=== PATIENT | female | born 1955 | race Caucasian/White ===

== ENCOUNTER 2020-12-05 12:41 | Emergency (ER) | payer MEDICARE ==
[~2020-12-05] VITALS: Ht 157.5 cm; Wt 91.0 kg
[~2020-12-05 12:41] MED LIST: ATOR40TA PO; CIPR500T94 PO; MECL12.582 PO; SCOP1PAT11 TP
[2020-12-05] MEDS ORDERED: IPRATRPIUM/ALBUTEROL 0.5/2.5MG 3 ML NEBU. ONE (12:58)
[2020-12-05] MEDS ORDERED: ALBUTEROL SULFATE 2.5 MG/3 ML NEBU. NEB ONE ×2 (13:00→14:15)
[2020-12-05] MEDS ORDERED: methylPREDNISolone SOD SUCC PF 125 MG/2 ML VIAL. IV ONE (13:00)
[2020-12-05] MEDS ORDERED: IPRATRPIUM/ALBUTEROL 0.5/2.5MG 3 ML NEBU. NEB ONE (13:15)
[2020-12-05 13:27] LABS: BASO % 0 % (0-3); EOS # 0.3 x10^3/uL (0.0-0.7); EOS % 3 % (0-3); HEMATOCRIT 42.3 % (36.0-47.0); HEMOGLOBIN 14.3 g/dL (12.0-15.5); LYMPH # 3.3 x10^3/uL (1.0-4.8); LYMPH % 41 % (24-48); MEAN CORPUSCULAR HEMOGLOBIN 31 pg (25-35); MEAN CORPUSCULAR HGB CONC 34 g/dL (31-37); MEAN CORPUSCULAR VOLUME 91 fL (79-100); MONO # 0.6 x10^3/uL (0.0-1.1); MONO % 8 % (0-9); NEUT # 3.8 x10^3uL (1.8-7.7); NEUT % 48 % (31-73); PLATELET COUNT 267 x10^3/uL (140-400); RED BLOOD COUNT 4.67 x10^6/uL (3.50-5.40); RED CELL DISTRIBUTION WIDTH 13.7 % (11.5-14.5); WHITE BLOOD COUNT 7.9 x10^3/uL (4.0-11.0)
--- NOTE | 2020-12-05 13:29 | RAD ---
XR CHEST 1V History: Reason: shortness of breath / Spl. Instructions: / History: Comparison: July 26, 2020 Findings: Mild linear left basilar atelectasis. No consolidation or pleural effusion. Normal heart size. No pne umothorax. Impression: 1. No acute cardiopulmonary process. Electronically signed by: José Miguel Norris DO (12/05/2020 1:26 PM) [facility] [place]
[2020-12-05 13:34] LABS: CALCIUM 9.1 mg/dL (8.5-10.1); CREATININE 0.8 mg/dL (0.6-1.0); POTASSIUM 3.5 mmol/L (3.5-5.1)
--- NOTE | 2020-12-05 13:35 | PHYS DOC ---
Past History Past Medical History: COPD, High Cholesterol (CRISTIAN PENA APRN) Past Surgical History: No Surgical History (CRISTIAN PENA APRN) Alcohol Use: None Drug Use: None (CRISTIAN PENA APRN) General Adult EDM: Chief Complaint: SHORTNESS OF BREATH HPI: HPI: Patient is a 65-year-old female who presents with shortness of breath. Patient states that she forgot to take her medication to control her COPD. Patient denies chest pain, recent illness or fever. Patient has history of COPD and high cholesterol. (CRISTIAN PENA APRN) Review of Systems: Review of Systems: Constitutional: Denies fever or chills Eyes: Denies change in visual acuity HENT: Denies nasal congestion or sore throat Respiratory: Reports shortness of breath, denies cough Cardiovascular: Denies chest pain or edema GI: Denies abdominal pain, nausea, vomiting, bloody stools or diarrhea : Denies dysuria Musculoskeletal: Denies back pain or joint pain Integument: Denies rash Neurologic: Denies headache, focal weakness or sensory changes Endocrine: Denies polyuria or polydipsia Lymphatic: Denies swollen glands Psychiatric: Denies depression or anxiety (CRISTIAN PENA APRN) Current Medications: Current Meds: Current Medications Medications (Trade) Dose Ordered Sig/Rafa Start Time Stop Time Status Last Admin Dose Admin Albuterol Sulfate (Ventolin) 2.5 mg 1X ONCE 12/05/20 13:00 12/05/20 13:18 DC 12/05/20 13:15 2.5 MG Albuterol/ Ipratropium (Duoneb) 3 ml 1X ONCE 12/05/20 13:15 12/05/20 13:18 DC 12/05/20 13:16 3 ML Methylprednisolone Sodium Succinate (SOLU-Medrol 125MG VIAL) 125 mg 1X ONCE 12/05/20 13:00 12/05/20 13:18 DC 12/05/20 13:15 125 MG (CRISTIAN PENA APRN) Allergies: Allergies: Allergies Coded Allergies Type Severity Reaction Last Updated Verified No Known Allergies Allergy Unknown 12/05/20 No (CRISTIAN PENA APRN) Physical Exam: PE: Constitutional: Well developed, well nourished, no acute distress, non-toxic appearance. [] HENT: Normocephalic, atraumatic, bilateral external ears normal, oropharynx moist, no oral exudates, nose normal. [] Eyes: PERRLA, EOMI, conjunctiva normal, no discharge. [] Neck: Normal range of motion, no tenderness, supple, no stridor. [] Cardiovascular:Heart rate regular rhythm, no murmur [] Lungs & Thorax: Wheezing bilaterally on auscultation Abdomen: Bowel sounds normal, soft, no tenderness, no masses, no pulsatile masses. [] Skin: Warm, dry, no erythema, no rash. [] Back: No tenderness, no CVA tenderness. [] Extremities: No tenderness, no cyanosis, no clubbing, ROM intact, no edema. [] Neurologic: Alert and oriented X 3, normal motor function, normal sensory f unction, no focal deficits noted. [] Psychologic: Affect normal, judgement normal, mood normal. [] (CRISTIAN PENA APRN) Current Patient Data: Vital Signs: Vital Signs Date Time Temp Pulse Resp B/P (MAP) Pulse Ox O2 Delivery O2 Flow Rate FiO2 12/05/20 13:19 96 Room Air 12/05/20 13:01 97.8 77 28 165/83 (110) (CRISTIAN PENA APRN) EKG: EKG: Sinus rhythm. Heart rate 73 bpm. [] (CRISTIAN PENA APRN) Radiology/Procedures: Radiology/Procedures: []XR CHEST 1V History: Reason: shortness of breath / Spl. Instructions: / History: Comparison: July 26, 2020 Findings: Mild linear left basilar atelectasis. No consolidation or pleural effusion. Normal heart size. No pneumothorax. Impression: 1. No acute cardiopulmonary process. Electronically signed by: José Miguel Norris DO (12/05/2020 1:26 PM) [facility] (CRISTIAN PENA APRN) Heart Score: C/O Chest Pain: No Risk Factors: Risk Factors: DM, Current or recent (<one month) smoker, HTN, HLP, family history of CAD, obesity. Risk Scores: Score 0 - 3: 2.5% MACE over next 6 weeks - Discharge Home Score 4 - 6: 20.3% MACE over next 6 weeks - Admit for Clinical Observation Score 7 - 10: 72.7% MACE over next 6 weeks - Early Invasive Strategies (CRISTIAN PENA APRN) Course & Med Decision Making: Course & Med Decision Making Pertinent Labs and Imaging studies reviewed. (See chart for details) [] 65-year-old female who presents with shortness of breath. Patient has a history of COPD and states that she did not take her normal medications last week, because she forgot. Patient does have prescriptions and medications at home. Patient was 96% on room air upon arrival to the emergency room. Patient received 2 DuoNeb treatments and Solu-Medrol. Patient reports symptoms have improved. Wheezing improved on rotation. Chest x-ray was negative for any acute abnormalities. WBCs, 7.9. Afebrile. Troponin is negative. Patient ambulated to the restroom without distress. All other labs unremarkable. Patient most likely is experiencing a COPD exacerbation. Patient is being sent home with Medrol Dosepak and instructed to take her medications she has been prescribed for her COPD. Patient instructed to return to the emergency room with worsening symptoms. Patient is appreciative and okay with discharge plan. (CRISTIAN PENA APRN) Dragon Disclaimer: Dragon Disclaimer: This electronic medical record was generated, in whole or in part, using a voice recognition dictation system. (CRISTIAN PENA APRN) Attending Co-Sign The patient was seen and interviewed as well as examined at the bedside. The chart was reviewed. The case was discussed. Agree with the plan of care. (JAYMIE SAAVEDRA DO) Departure Departure: Impression: Primary Impression: COPD exacerbation Disposition: 01 HOME / SELF CARE / HOMELESS Condition: STABLE Referrals: JESSE BLANCO MD (PCP) Patient Instructions: Shortness of Breath Additional Instructions: You were seen in the emergency room for shortness of breath. You were given 2 breathing treatments while in the emergency room and also Solu-Medrol to help with breathing. Your x-ray was negative for any acute abnormalities. I am sending you home with a prescription for Medrol Dosepak. Please continue taking your COPD medications as directed. You can follow-up with your PCP. If you have increase in shortness of breath or chest pain please return to the emergency room. EMERGENCY DEPARTMENT GENERAL DISCHARGE INSTRUCTIONS Thank you for coming to [facility] (ED) today and trusting us with you care. We trust that you had a positivie experience in our Emergency Department. If you wish to speak to the department management, you may call the director at [phone]. YOUR FOLLOW UP INSTRUCTIONS ARE FOLLOWS: 1. Do you have a private Doctor? If you do not have a private doctor, please ask for a resource list of physicians or clinics that may be able to assist you with follow up care. 2. The Emergency Physician has interpreted your x-rays. The X-Ray specialist will also review them. If there is a change in the findings, you will be notified in 48 hours when at all possible. 3. A lab test or culture has been done, your results will be reviewed and you will be notified if you need a change in treatment. ADDITIONAL INSTRUCTIONS AND INFORMATION: 1. Your care today has been supervised by a physician who is specially trained in emergency care. Many problems require more than one evaluation for a complete diagnosis and treatment. We recommend that you schedule your follow up appointment as recom mended to ensure complete treatment of you illness or injury. If you are unable to obtain follow up care and continue to have a problem, or if your condition worsens, we recommend that you return to the ED. 2. We are not able to safely determine your condition over the phone nor are we able to give sound medical advice over the phone. For these safety reasons, if you call for medical advice we will ask you to come to the ED for further evaluation. 3. If you have any questions regarding these discharge instructions please call the ED at [phone]. SAFETY INFORMATION: In the interest of safety, wellness, and injury prevention; we encourage you to wear your sealbelt, if you smoke; quite smoking, and we encourage family to use a protective helmet for bicycling and other sporting events that present an increased risk for head injury. IF YOUR SYMPTOMS WORSEN OR NEW SYMPTOMS DEVELOP, OR YOU HAVE CONCERNS ABOUT YOUR CONDITION; OR IF YOUR CONDITION WORSENS WHILE YOU ARE WAITING FOR YOUR FOLLOW UP APPOINTMENT; EITHER CONTACT YOUR PRIMARY CARE DOCTOR, THE PHYSICIAN WHOSE NAME AND NUMBER YOU WERE GIVEN, OR RETURN TO THE ED IMMEDIATELY. Scripts Methylprednisolone (MEDROL) 4 Mg Tab.ds.pk 1 PKG PO UD for inflammation for 6 Days, #1 PKG 0 Refills Prov: CRISTIAN PENA APRN 12/05/20 CRISTIAN PENA APRN December 05, 2020 13:35 JAYMIE SAAVEDRA DO December 06, 2020 06:19
--- NOTE | 2020-12-05 13:51 | EKG ---
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
[2020-12-05] MEDS ORDERED: METH4TAB2 PO (14:06)
[2020-12-05 14:11] VITALS: BP 150/82
== END 2020-12-05 14:34 | disposition home or self-care (01) ==
LOC: ER 12:41
DX: J44.1 Chronic obstructive pulmonary disease with (acute) exacerbation (principal); E78.5 Hyperlipidemia, unspecified
CPT/HCPCS: 36415; 71045; 80048; 84484; 85025; 93005; 94640; 96374; 99285; J2930; J7613

== ENCOUNTER 2021-02-27 15:32 | Emergency (ER) | payer MEDICARE ==
[~2021-02-27] VITALS: Ht 157.5 cm; Wt 91.0 kg
[~2021-02-27 15:32] MED LIST changes: +METH4TAB2 PO
--- NOTE | 2021-02-27 16:02 | RAD ---
Single AP view of the chest. Comparison: 12/05/2020. Indication: Chest pain shortness of air Findings: The heart is not enlarged. There is no pneumothorax or effusion. No air space or interstitial diseas e. Impression: 1. No acute cardiopulmonary process. Electronically signed by: Kushal Guallpa MD (02/27/2021 4:00 PM) [facility]
--- NOTE | 2021-02-27 16:19 | PHYS DOC ---
Past History Past Medical History: COPD, High Cholesterol (BIA JACOBSON APRN) Past Surgical History: No Surgical History (BIA JACOBSON APRN) Alcohol Use: None Drug Use: None (BIA JACOBSON APRN) General Adult EDM: Chief Complaint: SHORTNESS OF BREATH HPI: HPI: Is a 65-year-old female being seen in the ER for shortness of breath and a nonproductive cough that started yesterday. Patient reports that shortness of breath is worse with exertion. She is also reporting midsternal chest pain but states "I think it is because of my shortness of breath". She reports that the pain is constant and worse with inspiration. She cannot describe the pain. Patient has a history of COPD. She does not wear oxygen at home. She reports using her inhalers at home without relief in her symptoms. She denies fevers, nasal drainage, sick exposures. (BIA JACOBSON APRN) Review of Systems: Review of Systems: 14 body systems of the review of systems have been reviewed. See HPI for pertinent positive and negative responses, otherwise all other systems are negative, nonpertinent or noncontributory (BIA JACOBSON APRN) Current Medications: Current Meds: Current Medications Medications (Trade) Dose Ordered Sig/Rafa Start Time Stop Time Status Last Admin Dose Admin Albuterol/ Ipratropium (Duoneb) 3 ml 1X ONCE 02/27/21 16:15 02/27/21 16:16 UNV Methylprednisolone Sodium Succinate (SOLU-Medrol 125MG VIAL) 125 mg 1X ONCE 02/27/21 16:15 02/27/21 16:16 UNV (BIA JACOBSON APRN) Allergies: Allergies: Allergies Coded Allergies Type Severity Reaction Last Updated Verified No Known Allergies Allergy Unknown 12/05/20 No (BIA JACOBSON APRN) Physical Exam: PE: Constitutional: Well developed, well nourished, no acute distress, non-toxic appearance. [] HENT: Normocephalic, atraumatic, bilateral external ears normal, oropharynx moist, no oral exudates, nose normal. [] Eyes: PERRL, EOMI, conjunctiva normal, no discharge. [] Neck: Normal range of motion, no tenderness, supple, no stridor. [] Cardiovascular:Heart rate regular rhythm, no murmur [] Lungs & Thorax: Wheezing noted throughout lung luther Abdomen: Bowel sounds normal, soft, no tenderness, no masses, no pulsatile masses. [] Skin: Warm, dry, no erythema, no rash. [] Back: Normal range of motion Extremities: No tenderness, no cyanosis, no clubbing, ROM intact, no edema. [] Neurologic: Alert and oriented X 3, normal motor function, normal sensory function, no focal deficits noted. [] Psychologic: Affect normal, judgement normal, mood normal. [] (BIA JACOBSON APRN) Current Patient Data: Vital Signs: Vital Signs Date Time Temp Pulse Resp B/P (MAP) Pulse Ox O2 Delivery O2 Flow Rate FiO2 02/27/21 15:41 98.5 94 16 146/79 95 Room Air (BIA JACOBSON APRN) EKG: EKG: EKG performed by ER staff at 1540 shows sinus rhythm, no STEMI as read by Dr. Saavedra at 1545. [] (BIA JACOBSON APRN) Radiology/Procedures: Radiology/Procedures: ROCEDURE: PORTABLE CHEST 1V Single AP view of the chest. Comparison: 12/05/2020. Indication: Chest pain shortness of air Findings: The heart is not enlarged. There is no pneumothorax or effusion. No air space or interstitial disease. Impression: 1. No acute cardiopulmonary process. Electronically signed by: Kushal Guallpa MD (02/27/2021 4:00 PM) [facility] DICTATED AND SIGNED BY: KUSHAL GUALLPA MD DATE: 02/27/21 1600 CC: BIA JACOBSON APRN; PAULA HUNT ~MTH0 0 [] (BIA JACOBSON APRN) Heart Score: C/O Chest Pain: Yes HEART Score for Chest Pain: HEART Score for Chest Pain Response (Comments) Value History Slighlty/Non-Suspicious 0 ECG Normal 0 Age >45 - < 65 1 Risk Factors 1 or 2 Risk Factors 1 Troponin < Normal Limit 0 Total 2 Risk Factors: Risk Factors: DM, Current or recent (<one month) smoker, HTN, HLP, family history of CAD, obesity. Risk Scores: Score 0 - 3: 2.5% MACE over next 6 weeks - Discharge Home Score 4 - 6: 20.3% MACE over next 6 weeks - Admit for Clinical Observation Score 7 - 10: 72.7% MACE over next 6 weeks - Early Invasive Strategies (BIA JACOBSON APRN) Course & Med Decision Making: Course & Med Decision Making Pertinent Labs and Imaging studies reviewed. (See chart for details) [] Patient is a 65-year-old COPD patient who presents to the ER for shortness of breath, midsternal chest pain and a nonproductive cough. Work-up in the ER consisted of blood work, chest x-ray, EKG. Patient treated with DuoNeb and steroid. Following DuoNeb, patient continues to be wheezing. Continuous nebulizer ordered. Work-up in the ER is unremarkable. Her heart score is 2. Following continuous nebulizer patient reports that she is feeling better, she is not wheezing, and her oxygen saturation has improved. Patient to be discharged home with a steroid and follow-up with her primary care provider. Patient's vital signs are stable and she is nonlabored and not hypoxic. I discussed with patient all findings and diagnostic testing as well as the need to follow-up with PCP for further evaluation and treatment or return to the ER if any new or worsening symptoms. Strict return precautions were also discussed at length. Patient voiced understanding and agreement with the plan. Patient is hemodynamically stable at the time of disposition. (BIA JACOBSON APRN) Dragon Disclaimer: Dragon Disclaimer: This electronic medical record was generated, in whole or in part, using a voice recognition dictation system. (BIA JACOBSON APRN) Attending Co-Sign The patient was seen and interviewed as well as examined at the bedside. The chart was reviewed. The case was discussed. Agree with the plan of care. (JAYMIE SAAVEDRA DO) Departure Departure: Impression: Primary Impression: COPD exacerbation Disposition: HOME / SELF CARE / HOMELESS Condition: GOOD Referrals: PAULA HUNT (PCP) Patient Instructions: Shortness of Breath Additional Instructions: You were seen in the ER today for shortness of breath and a nonproductive cough. Your work-up in the ER was unremarkable. Your vital signs were stable. You were noted to have wheezing and you were treated with steroids and breathing treatment. You are being discharged home with steroids and advised to follow-up with your primary care provider tomorrow regarding your ER visit. Continue your home medications for your COPD such as inhalers. If you develop worsening of your shortness of breath, chest pain, high fevers refractory to treatment, lightheadedness, palpitations please return to the ER immediately. EMERGENCY DEPARTMENT GENERAL DISCHARGE INSTRUCTIONS Thank you for coming to [facility] (ED) today and trusting us with you care. We trust that you had a positivie experience in our Emergency Department. If you wish to speak to the department management, you may call the director at [phone]. YOUR FOLLOW UP INSTRUCTIONS ARE FOLLOWS: 1. Do you have a private Doctor? If you do not have a private doctor, please ask for a resource list of physicians or clinics that may be able to assist you with follow up care. 2. The Emergency Physician has interpreted your x-rays. The X-Ray specialist will also review them. If there is a change in the findings, you will be notified in 48 hours when at all possible. 3. A lab test or culture has been done, your results will be reviewed and you will be notified if you need a change in treatment. ADDITIONAL INSTRUCTIONS AND INFORMATION: 1. Your care today has been supervised by a physician who is specially trained in emergency care. Many problems require more than one evaluation for a complete diagnosis and treatment. We recommend that you schedule your follow up appointment as recommended to ensure complete treatment of you illness or injury. If you are unable to obtain follow up care and continue to have a problem, or if your condition worsens, we recommend that you return to the ED. 2. We are not able to safely determine your condition over the phone nor are we able to give sound medical advice over the phone. For these safety reasons, if you call for medical advice we will ask you to come to the ED for further evaluation. 3. If you have any questions regarding these discharge instructions please call the ED at [phone]. SAFETY INFORMATION: In the interest of safety, wellness, and injury prevention; we encourage you to wear your sealbelt, if you smoke; quite smoking, and we encourage family to use a protective helmet for bicycling and other sporting events that present an increased risk for head injury. IF YOUR SYMPTOMS WORSEN OR NEW SYMPTOMS DEVELOP, OR YOU HAVE CONCERNS ABOUT YOUR CONDITION; OR IF YOUR CONDITION WORSENS WHILE YOU ARE WAITING FOR YOUR FOLLOW UP APPOINTMENT; EITHER CONTACT YOUR PRIMARY CARE DOCTOR, THE PHYSICIAN WHOSE NAME AND NUMBER YOU WERE GIVEN, OR RETURN TO THE ED IMMEDIATELY. Scripts Prednisone (PREDNISONE) 20 Mg Tablet 3 TAB PO DAILY for copd exacerbation for 5 Days, #15 TAB 0 Refills Prov: BIA JACOBSON APRN 02/27/21 BIA JACOBSON APRN Feb 27, 2021 16:19 JAYMIE SAAVEDRA DO Feb 28, 2021 07:09
[2021-02-27 16:22] LABS: BASO # 0.1 x10^3/uL (0.0-0.2); BASO % 1 % (0-3); EOS # 0.2 x10^3/uL (0.0-0.7); EOS % 3 % (0-3); HEMOGLOBIN 14.4 g/dL (12.0-15.5); LYMPH % 26 % (24-48); MEAN CORPUSCULAR HEMOGLOBIN 30 pg (25-35); MEAN CORPUSCULAR HGB CONC 34 g/dL (31-37); MEAN CORPUSCULAR VOLUME 90 fL (79-100); MONO # 0.6 x10^3/uL (0.0-1.1); MONO % 8 % (0-9); NEUT # 4.8 x10^3uL (1.8-7.7); NEUT % 62 % (31-73); PLATELET COUNT 250 x10^3/uL (140-400); RED BLOOD COUNT 4.78 x10^6/uL (3.50-5.40); RED CELL DISTRIBUTION WIDTH 13.9 % (11.5-14.5); WHITE BLOOD COUNT 7.7 x10^3/uL (4.0-11.0)
[2021-02-27 16:29] LABS: CALCIUM 8.6 mg/dL (8.5-10.1); CREATININE 0.8 mg/dL (0.6-1.0); POTASSIUM 3.7 mmol/L (3.5-5.1)
[2021-02-27] MEDS ORDERED: methylPREDNISolone SOD SUCC PF 125 MG/2 ML VIAL. IV ONE (16:30)
[2021-02-27] MEDS ORDERED: IPRATRPIUM/ALBUTEROL 0.5/2.5MG 3 ML NEBU. NEB ONE (16:30)
[2021-02-27 16:43] LABS: ALBUMIN 3.5 g/dL (3.4-5.0); TOTAL BILIRUBIN 0.2 mg/dL (0.2-1.0); TOTAL PROTEIN 6.9 g/dL (6.4-8.2)
--- NOTE | 2021-02-27 17:21 | EKG ---
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
[2021-02-27 17:28] VITALS: BP 142/76
[2021-02-27] MEDS ORDERED: PRED20TA PO (17:28)
[2021-02-27] MEDS ORDERED: ALBUTEROL SULFATE 2.5 MG/3 ML NEBU. CONT NEB ONE (17:30)
--- NOTE | 2021-02-27 19:16 | EKG ---
[address] [address] Test Date: 2021-02-27 Test Time: 18:47:44 Pat Name: MERRY GRACE Department: Room: Gender: F Ux Lead: DEBRA : 1955 Requested By: BIA JACOBSON Order Number: [id number] Reading MD: Measurements Intervals [place] Rate: 91 P: 90 DE: 172 QRS: 85 QRSD: 94 T: 38 QT: 352 QTc: 435 Interpretive Statements SINUS RHYTHM NORMAL ECG RI6.02 No previous ECG available for comparison
== END 2021-02-27 19:19 | disposition home or self-care (01) ==
LOC: ER 15:32
DX: J44.1 Chronic obstructive pulmonary disease with (acute) exacerbation (principal); E78.00 Pure hypercholesterolemia, unspecified
CPT/HCPCS: 36415; 71045; 80053; 84484; 85025; 93005; 94640; 96374; 99285; J2930; J7613; 94644